=== PATIENT | male | born 1955 | race Caucasian/White ===

== ENCOUNTER 2018-04-15 15:21 | Emergency (ER) | payer MEDICAID, OTHER ==
[~2018-04-15] VITALS: Ht 172.7 cm; Wt 85.0 kg
[~2018-04-15 15:21] MED LIST: SULF1SOL4 OD; Z.0.NO CURRENT MEDS
[2018-04-15 15:30] VITALS: BP 168/97; PULSE 99; RESP 16; TEMP 99; O2SAT 97
[2018-04-15] MEDS ORDERED: OXYC30TA PO (15:30)
[2018-04-15] MEDS ORDERED: COMB0.2S EACH EYE (15:30)
--- NOTE | 2018-04-15 15:43 | PD ---
HPI Chief Complaint: Psychiatric Symptoms Time Seen by Provider: 15:38 Travel History International Travel<30 days: No Contact w/Intl Traveler<30days: No Traveled to known affect area: No History of Present Illness HPI 62-year-old male presents to the emergency department under the [place] act. Patient was reportedly pouring gasoline in front of a local [place] [employer] tools. Patient states he was trying to return and engine, but could not return it with gasoline in it, so he decided to port out on the sidewalk. His [place] act stated that he wanted to kill himself, but he feels that this is a misunderstanding. Patient has history of being legally blind, but denies any other medical issues currently. No history of psychiatric issues. He takes no medications other than for his eyes. He has no known drug allergies. PFSH Past Medical History ?: Not Social History Alcohol Use: Yes Tobacco Use: No Substance Use: No Allergies-Medications (Allergen,Severity, Reaction): Coded Allergies: No Known Allergies (Verified Adverse Reaction, Unknown, 04/15/18) Reported Meds & Prescriptions Reported Meds & Active Scripts Active Reported Combigan Opth Drops (Brimonidine-Timolol Opth Drops) 0.2-0.5% Soln 1 Drop EACH EYE Q12HR Oxycodone (Oxycodone HCl) 30 Mg Tab 30 Mg PO Q8H PRN Review of Systems Except as stated in HPI: all other systems reviewed are Neg General / Constitutional: No: Fever Eyes: No: Visual changes HENT: No: Headaches Cardiovascular: No: Chest Pain or Discomfort Respiratory: No: Shortness of Breath Gastrointestinal: No: Abdominal Pain Genitourinary: No: Dysuria Musculoskeletal: No: Pain Skin: No Rash Neurologic: No: Weakness Psychiatric: No: Depression, Suicidal Ideations, Substance Abuse, Homicidal Ideation Endocrine: No: Polydipsia Hematologic/Lymphatic: No: Easy Bruising Physical Exam Narrative GENERAL: Patient appears in no obvious distress. He is anxious and somewhat pressured in his speech. SKIN: Warm and dry. Normal color. Normal turgor. No signs of trauma. HEAD: Atraumatic. Normocephalic. EYES: Pupils equal and round. No scleral icterus. No injection or drainage. ENT: No nasal bleeding or discharge. Mucous membranes pink and moist. NECK: Trachea midline. Supple and nontender. CARDIOVASCULAR: Regular rate and rhythm. RESPIRATORY: No accessory muscle use. Clear to auscultation. Breath sounds equal bilaterally. MUSCULOSKELETAL: Extremities without clubbing, cyanosis, or edema. No obvious deformities. NEUROLOGICAL: Awake and alert. No obvious cranial nerve deficits. Motor grossly within normal limits. Five out of 5 muscle strength in the arms and legs. Normal speech. Data Data Last Documented VS Vital Signs Date Time Temp Pulse Resp B/P (MAP) Pulse Ox O2 Delivery O2 Flow Rate FiO2 04/15/18 15:30 99.0 99 16 168/97 (120) 97 Orders Orders Complete Blood Count With Diff (04/15/18 15:39) Comprehensive Metabolic Panel (04/15/18 15:39) Thyroid Stimulating Hormone (04/15/18 15:39) Psych Screen (04/15/18 15:39) Drug Screen, Random Urine (04/15/18 15:39) Alcohol (Ethanol) (04/15/18 15:39) MDM Medical Decision Making Medical Screen Exam Complete: Yes Emergency Medical Condition: Yes Differential Diagnosis Capellan act. Aggressive behavior. Suicidal ideation. Narrative Course Patient appears medically stable at time of exam. Psychiatric labs ordered per protocol. Patient is medically cleared for psychiatric evaluation Psychiatric screen is ordered. Condition: Stable Rubén Sal Apr 15, 2018 15:43
[2018-04-15 16:01] LABS: AUTOMATED NEUTROPHIL # 4.8 TH/MM3 (1.8-7.7); BASOPHIL % 0.4 % (0.0-2.0); EOSINOPHIL % 0.6 % (0.0-4.0); HEMATOCRIT 43.8 % (39.0-51.0); HEMOGLOBIN 14.7 GM/DL (13.0-17.0); LYMPH % 15.3 % (9.0-44.0); MEAN CELL VOLUME 92.9 FL (80.0-100.0); MEAN CORPUSCULAR HEMOGLOBIN 31.2 PG (27.0-34.0); MEAN CORPUSCULAR HGB CONC 33.6 % (32.0-36.0); MEAN PLATELET VOLUME 8.9 FL (7.0-11.0); MONOCYTE # 0.4 TH/MM3 (0-0.9); NEUT % 76.7 % (16.0-70.0); PLATELET COUNT 194 TH/MM3 (150-450); RED BLOOD COUNT 4.72 MIL/MM3 (4.50-5.90); RED CELL DISTRIBUTION WIDTH 13.1 % (11.6-17.2); WHITE BLOOD COUNT 6.3 TH/MM3 (4.0-11.0)
[2018-04-15 16:20] LABS: ALBUMIN 4.4 GM/DL (3.4-5.0); ALT (GPT) 25 U/L (12-78); AST (GOT) 15 U/L (15-37); BICARBONATE 27.4 MEQ/L (21.0-32.0); BLOOD UREA NITROGEN 18 MG/DL (7-18); CHLORIDE 106 MEQ/L (98-107); CREATININE 1.33 MG/DL (0.60-1.30); GLOMERULAR FILTRATION RATE 54 ML/MIN (>89); GLUCOSE,RANDOM 154 MG/DL (74-106); SODIUM (NA) 142 MEQ/L (136-145)
[2018-04-15 16:30] LABS: ALKALINE PHOSPHATASE 70 U/L (45-117); TOTAL BILIRUBIN ADULT 0.6 MG/DL (0.2-1.0); TOTAL PROTEIN 7.9 GM/DL (6.4-8.2)
[2018-04-15 18:26] VITALS: BP 137/83; PULSE 70; RESP 16; TEMP 98.6; O2SAT 97
[2018-04-15 22:10] VITALS: BP 146/82; PULSE 72; RESP 18; TEMP 98.2; O2SAT 99
[2018-04-16 02:27] VITALS: BP 148/69; PULSE 63; RESP 18; TEMP 98.6; O2SAT 96
[2018-04-16 06:25] VITALS: BP 149/71; PULSE 70; RESP 17; TEMP 99.2; O2SAT 98
--- NOTE | 2018-04-16 09:03 | PD.PSY.CON ---
Provisional Diagnosis Admission Date Date of consultation 04/16/18 Down[place] I. 1. Adjustment disorder with mixed disturbance of emotions and conduct 2. Cannabis use, rule out use disorder Down[place] II. Deferred History of Present Illness Service Psychiatry Consult Requested By Emergency department Reason for Consult [place]an act Primary Care Physician Unknown HPI Mr. French is a 62-year-old male with no reported past psychiatric history who presents under a [place] act by law enforcement alleging suicidal statements. Patient's urine toxicology was positive for cannabinoids on presentation here. Reviewing the electronic medical record, I see no previous psychiatric consultations or admissions within our system. Patient seen and examined. Chart reviewed. Case discussed with nurse in the J pod. No evidence of any suicidality or homicidality while patient has been under observation in the J pod. On my examination this morning, the patient admits to making statements in the Capellan act but says that these were metaphorical. He was distressed because he was trying to return a faulty engine to the company that he purchased it from and was being given the run around. He had driven from quite a distance as he is based in [place]. He adamantly denies any suicidal or homicidal ideation, intent or plan and contracts for safety. I can elicit no depressive or hypomanic/manic symptoms. He says that he is "happy in my life." He denies any audiovisual hallucinations. I can elicit no paranoia, no ideas of reference, no other delusional material. Remainder of the psychiatric ROS is negative. No acute physical complaints. Patient is requesting discharge from the ED today. Past psychiatric history: Patient reports no history of psychiatric diagnosis. He is not under the care of a psychiatrist. He denies any history of psychiatric admissions or suicide attempts. Family history: Patient denies any family history of mental illness or suicide. Chemical dependency history: Patient reports that he occasionally uses cannabis in order to avoid using oxycodone, the latter of which he is prescribed for chronic back pain. Denies any other substance use. Social history: Patient is single. He has 5 children. He reports that he has a PhD in engineering and also has previously worked as a medical doctor in emergency medicine. 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 He denies any legal history. Denies any access to guns or firearms. Believes in God. Denies any history of trauma. Nurse has reached out to the patient's friend and mobile lounge driver Tra Mcdowell who reportedly expresses no safety concerns about the patient being discharged from the ED today. Review of Systems Except as stated in HPI: all other systems reviewed are Neg Past Family Social History Coded Allergies: No Known Allergies (Verified Adverse Reaction, Unknown, 04/15/18) Past Medical History Patient is visually impaired. See electronic medical record. Reported Medications Brimonidine-Timolol Opth Drops (Combigan Opth Drops) 0.2-0.5% Soln, 1 DROP EACH EYE Q12HR for Glaucoma, BOTTLE 0 Refills 04/15/18 Oxycodone (Oxycodone) 30 Mg Tab, 30 MG PO Q8H Y for PAIN, TAB 0 Refills 04/15/18 Patient's Strengths (min. 2) Attending to basic needs. Verbally fluent. Physical Exam Physical exam completed by ED provider. On my examination today, the patient appears to be in no acute physical distress. Motor abnormalities noted. Labs and vitals reviewed: Vital Signs Vital Signs Date Time Temp Pulse Resp B/P (MAP) Pulse Ox O2 Delivery O2 Flow Rate FiO2 04/16/18 06:25 99.2 70 17 149/71 (97) 98 Room Air Lab Results Test 04/15/18 15:33 04/15/18 21:16 White Blood Count 6.3 TH/MM3 Red Blood Count 4.72 MIL/MM3 Hemoglobin 14.7 GM/DL Hematocrit 43.8 % Mean Corpuscular Volume 92.9 FL Mean Corpuscular Hemoglobin 31.2 PG Mean Corpuscular Hemoglobin Concent 33.6 % Red Cell Distribution Width 13.1 % Platelet Count 194 TH/MM3 Mean Platelet Volume 8.9 FL Neutrophils (%) (Auto) 76.7 % Lymphocytes (%) (Auto) 15.3 % Monocytes (%) (Auto) 7.0 % Eosinophils (%) (Auto) 0.6 % Basophils (%) (Auto) 0.4 % Neutrophils # (Auto) 4.8 TH/MM3 Lymphocytes # (Auto) 1.0 TH/MM3 Monocytes # (Auto) 0.4 TH/MM3 Eosinophils # (Auto) 0.0 TH/MM3 Basophils # (Auto) 0.0 TH/MM3 CBC Comment DIFF FINAL Differential Comment Blood Urea Nitrogen 18 MG/DL Creatinine 1.33 MG/DL Random Glucose 154 MG/DL Total Protein 7.9 GM/DL Albumin 4.4 GM/DL Calcium Level 9.0 MG/DL Alkaline Phosphatase 70 U/L Aspartate Amino Transf (AST/SGOT) 15 U/L Alanine Aminotransferase (ALT/SGPT) 25 U/L Total Bilirubin 0.6 MG/DL Sodium Level 142 MEQ/L Potassium Level 3.8 MEQ/L Chloride Level 106 MEQ/L Carbon Dioxide Level 27.4 MEQ/L Anion Gap 9 MEQ/L Estimat Glomerular Filtration Rate 54 ML/MIN Thyroid Stimulating Hormone 3rd Gen 0.760 uIU/ML Ethyl Alcohol Level LESS THAN 3 MG/DL Urine Opiates Screen NEG Urine Barbiturates Screen NEG Urine Amphetamines Screen NEG Urine Benzodiazepines Screen NEG Urine Cocaine Screen NEG Urine Cannabinoids Screen POS Mental Status Examination Appearance: Appropriate Consciousness: Alert Orientation: x4 Motor Activity: Normal gait Speech: Unremarkable Language: Adequate Fund of Knowledge: Adequate Attention and Concentration: Adequate Memory: Unremarkable (Grossly intact on clinical exam) Mood: Appropriate Affect: Appropriate Thought Process & Associations: Intact Thought Content: Appropriate Hallucination Type: None Delusion Type: None Suicidal Ideation: No Suicidal Plan: No Suicidal Intention: No Homicidal Ideation: No Homicidal Plan: No Homicidal Intention: No Insight: Adequate Judgment: Adequate Assessment & Plan Problem List: (1) Adjustment disorder with mixed disturbance of emotions and conduct ICD Codes: F43.25 - Adjustment disorder with mixed disturbance of emotions and conduct Assessment & Plan 62-year-old male with psychiatric history as detailed above who presents under a Capellan act alleging suicidal statements. On my examination today, the patient admits to making these statements but says that they were metaphorical. He denies any suicidal or homicidal ideation, intent or plan. He contracts for safety. There is no evidence of unstable mental illness in this patient at this time. He appears to be attending to his basic needs. Nurse has obtained reassuring collateral from friend. Synthesizing this information and based on the available evidence, I president consumer electronics company that the patient does not meet the Capellan act criteria. I have lifted the Capellan act. He is requesting discharge from the emergency room this morning, and I have no basis to retain him over his objection. Outpatient mental health referral to be provided by nursing. I have counseled the patient regarding warning signs for need to return to the psychiatric emergency room as part of a general safety plan. Patient is otherwise psychiatrically clear for discharge from the ED. Thank you very much for this consultation. Bernardo Gallegos MD Apr 16, 2018 09:03
--- NOTE | 2018-04-16 09:16 | PD ---
Physical Exam Time Seen by Provider: 09:14 Narrative Please refer to previous providers documentation for details surrounding the patient's current visit. Data Data Last Documented VS Vital Signs Date Time Temp Pulse Resp B/P (MAP) Pulse Ox O2 Delivery O2 Flow Rate FiO2 04/16/18 06:25 99.2 70 17 149/71 (97) 98 Room Air Orders Orders Complete Blood Count With Diff (04/15/18 15:39) Comprehensive Metabolic Panel (04/15/18 15:39) Thyroid Stimulating Hormone (04/15/18 15:39) Psych Screen (04/15/18 15:39) Drug Screen, Random Urine (04/15/18 15:39) Alcohol (Ethanol) (04/15/18 15:39) Diet Regular Basic (04/15/18 Dinner) Diet Regular Basic (04/16/18 Breakfast) Ed Discharge Order (04/16/18 09:13) Labs Laboratory Tests Test 04/15/18 15:33 04/15/18 21:16 White Blood Count 6.3 TH/MM3 Red Blood Count 4.72 MIL/MM3 Hemoglobin 14.7 GM/DL Hematocrit 43.8 % Mean Corpuscular Volume 92.9 FL Mean Corpuscular Hemoglobin 31.2 PG Mean Corpuscular Hemoglobin Concent 33.6 % Red Cell Distribution Width 13.1 % Platelet Count 194 TH/MM3 Mean Platelet Volume 8.9 FL Neutrophils (%) (Auto) 76.7 % Lymphocytes (%) (Auto) 15.3 % Monocytes (%) (Auto) 7.0 % Eosinophils (%) (Auto) 0.6 % Basophils (%) (Auto) 0.4 % Neutrophils # (Auto) 4.8 TH/MM3 Lymphocytes # (Auto) 1.0 TH/MM3 Monocytes # (Auto) 0.4 TH/MM3 Eosinophils # (Auto) 0.0 TH/MM3 Basophils # (Auto) 0.0 TH/MM3 CBC Comment DIFF FINAL Differential Comment Blood Urea Nitrogen 18 MG/DL Creatinine 1.33 MG/DL Random Glucose 154 MG/DL Total Protein 7.9 GM/DL Albumin 4.4 GM/DL Calcium Level 9.0 MG/DL Alkaline Phosphatase 70 U/L Aspartate Amino Transf (AST/SGOT) 15 U/L Alanine Aminotransferase (ALT/SGPT) 25 U/L Total Bilirubin 0.6 MG/DL Sodium Level 142 MEQ/L Potassium Level 3.8 MEQ/L Chloride Level 106 MEQ/L Carbon Dioxide Level 27.4 MEQ/L Anion Gap 9 MEQ/L Estimat Glomerular Filtration Rate 54 ML/MIN Thyroid Stimulating Hormone 3rd Gen 0.760 uIU/ML Ethyl Alcohol Level LESS THAN 3 MG/DL Urine Opiates Screen NEG Urine Barbiturates Screen NEG Urine Amphetamines Screen NEG Urine Benzodiazepines Screen NEG Urine Cocaine Screen NEG Urine Cannabinoids Screen POS MDM Medical Record Reviewed: Yes Supervised Visit with ANT: No Narrative Course Patient was seen and evaluated yesterday, medically clear. Patient has been seen by psychiatrist today and Capellan act has been lifted. He will be discharged home at this time. Diagnosis Primary Impression: Stress and adjustment reaction Referrals: [facility] (Out patient) call for appointment Medication Management Patient Instructions: General Instructions, Stress (ED) Departure Forms: Tests/Procedures Disposition: 01 DISCHARGE HOME Condition: Stable DesouzaMaddie acosta PATRICIA Apr 16, 2018 09:16
== END 2018-04-16 09:17 | disposition home or self-care (01) ==
LOC: NEDAMB 15:21 → NEPJ 04-16 09:17
DX: F43.25 Adjustment disorder with mixed disturbance of emotions and conduct (principal); F12.90 Cannabis use, unspecified, uncomplicated
CPT/HCPCS: 80053; 80307; 84443; 85025; 99284